=== PATIENT | male | born 1985 | race African-American/Black ===

== ENCOUNTER 2017-05-25 15:02 | Emergency (ER) | payer OTHER ==
[~2017-05-25] VITALS: Ht 180.3 cm; Wt 74.8 kg
--- NOTE | ~2017-05-25 | EKG ---
PATIENT: KIEL PEREIRA UNIT #: [id number] Ventricular Rate: 73 BPM Atrial Rate: 73 BPM P-R Interval: 212 ms QRS Duration: 102 ms Q-T Interval: 360 ms QTC Calculation(Bezet): 396 ms P [place]: 49 degrees Calculated R [place]: 20 degrees Calculated T [place]: 56 degrees Diagnosis Line: Sinus rhythm with 1st degree A-V block Diagnosis Line: RSR' or QR pattern in V1 suggests right Diagnosis Line: ventricular conduction delay Diagnosis Line: Borderline ECG Diagnosis Line: No previous ECGs available Diagnosis Line: Confirmed by ALPESH WILLIAMSON MD ([id number]) on 05/26/2017 Diagnosis Line: 5:06:30 PM INTERPRETING MD: CLAY DARNELL
--- NOTE | ~2017-05-25 | CR72 ---
[facility] A Service of [facility] RADIOLOGY TEXT RESULTS PATIENT: KIEL PREEIRA LOCATION: [facility] : [birth year] UNIT #: [id number] AGE: [address]: Magalys Perkins MD SEX: M ORDER DR: [id number] [address] [id number] [id number] MR#: [id number] Acc #: [id number] NAME: KIEL PEREIRA : 1985 SEX: M STUDY DATE/TIME: 05/25/2017 15:13 UNIT: [facility] ROOM: STUDY DESCRIPTION: CR Chest Single View Portable Attending Physician: Magalys Perkins M.D. Ordering Physician: Magalys Perkins M.D. Primary Care Physician: No Primary Care Physician MEDICAL IMAGING REPORT This report is preliminary unless electronic signature is present EXAMINATION AP portable chest. DATE 05/25/2017 HISTORY 32-year-old male with dizziness and near-syncope today. COMPARISON None. FINDINGS Clear lungs. Normal heart size. No pleural effusion or pneumothorax. Thoracolumbar junction curvature toward the right. No acute osseous abnormalities. IMPRESSION 1. No acute chest findings. 2. Thoracolumbar junction dextroscoliosis. Dictated by... Kaitlynn Minor M.D. THIS IS AN ELECTRONICALLY VERIFIED REPORT Kaitlynn Minor M.D. at 05/26/2017 1:54 PM [facility]/lima TD: 05/25/2017 21:54 JOB #: [id number] [facility] A Service of [facility] RADIOLOGY TEXT RESULTS PATIENT: KIEL PEREIRA LOCATION: [facility] : 83 UNIT #: [id number] AGE: [address]: Magalys Perkins MD SEX: M ORDER DR: MEDICAL IMAGING REPORT Page 1 of 1 COPY
[~2017-05-25 15:02] MED LIST: LISINOPRIL PO
[2017-05-25 15:32] LABS: POC - TROPONIN <0.05 ng/mL (<=0.05)
[2017-05-25 15:36] LABS: BASOPHIL# 0.1 X10e3 (0-0.3); BASOPHIL% 0.7 % (0-2.5); EOSINOPHIL# 0.3 X10e3 (0-0.7); EOSINOPHIL% 2.7 % (0.0-7.0); HEMATOCRIT 43.7 % (38.0-50.0); LYMPHOCYTE# 4.4 X10e3 (1.0-3.5); LYMPHOCYTE% 37.2 % (17.0-45.0); MEAN PLATELET VOLUME 7.3 FL (6.5-11.5); MONOCYTE# 0.8 X10e3 (0-1.0); MONOCYTE% 6.9 % (3.0-12.0); NEUTROPHIL# 6.2 X10e3 (1.5-7.1); NEUTROPHIL% 52.5 % (40-75); PLATELET COUNT 211 X10e3 (140-420); RED BLOOD COUNT 6.07 X10e (3.90-5.60); RED CELL DISTRIBUTION WIDTH 14.7 % (11.0-15.5); WHITE BLOOD COUNT 11.7 X10e3 (4.0-10.5)
[2017-05-25 15:45] LABS: ALBUMIN SERUM 4.7 g/dL (3.5-5.0); ALKALINE PHOSPHATASE 48 U/L (32-92); ALT (SGPT) 12 U/L (10-40); AST (SGOT) 22 U/L (10-42); BILIRUBIN, DIRECT 0.2 mg/dL (0.0-0.2); BILIRUBIN,INDIRECT 0.8 mg/dL (0.0-0.9); BLOOD UREA NITROGEN 15 mg/dL (9-23); CALCIUM SERUM 9.2 mg/dL (8.4-10.2); CARBON DIOXIDE 26 mmol/L (22-31); CHLORIDE 101 mmol/L (100-111); GLOM FILT RATE Estimated 114.1 mL/min (>60); GLUCOSE FASTING 104 mg/dL (70-110); POTASSIUM 3.9 mmol/L (3.5-5.1); PROTEIN TOTAL SERUM 7.7 g/dL (6.0-8.3); SODIUM 136 mmol/L (135-145)
[2017-05-25 15:49] LABS: ALCOHOL BLOOD <5 mg/dL (0)
[2017-05-25 15:59] LABS: DIFF IND YES
[2017-05-25 16:03] LABS: ANISOCYTOSIS MOD; MICROCYTOSIS SL; PLATELET ESTIMATE NORMAL (NORMAL); POIKILOCYTOSIS SL
[2017-05-25 16:45] LABS: URINE SOURCE CLEAN CATCH
[2017-05-25 16:54] LABS: URINE APPEARANCE CLEAR; URINE BILIRUBIN NEG (NEG); URINE BLOOD NEG (NEG); URINE COLOR YELLOW; URINE GLUCOSE NEG (NEG); URINE KETONE NEG (NEG); URINE LEUKOCYTE ESTERASE TRACE (NEG); URINE NITRATE NEG (NEG); URINE PROTEIN NEG (NEG); URINE SPECIFIC GRAVITY 1.023 (1.003-1.035)
[2017-05-25 16:57] LABS: URINE BACTERIA AUWI NEG (NEGATIVE); URINE SQUAMOUS EPITHELIAL CELL NONE SEEN /[HPF]
[2017-05-25 17:01] LABS: CULTURE INDICATED? NO
[2017-05-25 17:07] LABS: AMPHETAMINE NEG (NEG); BARBITURATES NEG (NEG); BENZODIAZEPINES NEG (NEG); COCAINE NEG (NEG); MARIJUANA POS (NEG); OPIATES POS (NEG); TRICYCLIC ANTIDEPRESSANTS NEG (NEG); U METHADONE NEG (NEG)
[2017-05-25 17:11] LABS: POC - CKMB 1.2 ng/mL (0.0-7.9); POC - TROPONIN <0.05 ng/mL (<=0.05)
== END 2017-05-25 19:28 | disposition home or self-care (01) ==
LOC: CED 15:02
PROVIDERS: Emergency Medicine
DX: R42 Dizziness and giddiness (principal); I10 Essential (primary) hypertension; Z79.899 Other long term (current) drug therapy; Z88.8 Allergy status to other drugs, medicaments and biological substances
CPT/HCPCS: 36415; 71010; 80048; 80076; 80307; 81003; 82553; 82947; 83880; 84484; 85025; 93005; 96360; 99284; G0480